=== PATIENT | male | born 1975 | race Caucasian/White ===

== ENCOUNTER 2020-12-31 13:23 | Inpatient (IN) | payer BC, SELFPAY ==
[2020-12-31] VITALS (7 sets, daily range): BP systolic 149–154; BP diastolic 92–94; PULSE 67–94; RESP 17–20; TEMP 36.3–37; O2SAT 93–99; BMI 34.9
[2020-12-31] MEDS: nicotine 21 mg Patch 1 PATCH TRANSDERMA (14:29)
[2020-12-31] MEDS: albuterol 8 gm MDI 2 PUFF INHALATION ×3 (17:03→23:15)
[2020-12-31] MEDS: acetaminophen 325 mg Tablet 650 MG PO (20:15)
[2020-12-31] MEDS: hyDROXYzine 25 mg Capsule 50 MG PO (20:26)
--- NOTE | 2020-12-31 20:30 | PC.NURSE ---
pt given vistaril for signs of increased anxiety.
--- NOTE | 2020-12-31 21:08 | PC.NURSE ---
pt putting together jigsaw puzzle of the floor of his room calmly.
[2021-01-01] VITALS (12 sets, daily range): BP systolic 112–137; BP diastolic 60–83; PULSE 73–92; RESP 16–20; TEMP 36.5–37.2; O2SAT 94–98
--- NOTE | 2021-01-01 05:45 | PC.NURSE ---
Patient at nurses station, States I smell coffee . Let patient know it was brewing and would be ready in 10-15 minutes. Patient had no S/S of any respiratory distress, no S/S of shortness of breath with ambulation or speech.
--- NOTE | 2021-01-01 05:58 | PC.NURSE ---
Aid requested assistance in patient's room, secondary to patient stating that he about, passed out went down and hurt my knee . Because I need my inhaler '.
--- NOTE | 2021-01-01 05:59 | PC.NURSE ---
Arrived at patient's room. Assessed patient. Patient was on his knees. Patient was leaning over bed coughing into his pillow. Patient's cough appeared to be productive, as he was spitting into tissue. Patient was offered an emesis basin, Patient refused. Patients respiratory rate was 32 with expiratory wheezing. I encouraged patient to slow down his breathing. Communicated to aid to have L.P.N. call Respiratory therapy STAT.
--- NOTE | 2021-01-01 06:02 | PC.NURSE ---
Confirmed with L.P.N that Respiratory Therapy was called. Continued to encourage patient to slow down his breathing. Continued to monitor patient.
--- NOTE | 2021-01-01 06:05 | PC.NURSE ---
Patients respiratory rate slowed to 24 B.P.M.. Patient was angry and commented This is cruel and unusual punishment, not being to have my inhaler with me at bedside to use when I want . I reinforced to the patient that Respiratory Therapy was on their way. Continued to encourage patient to slow breathing. Patient took pillow from bed and laid on floor. Patients acute respiratory distress appeared to be subsiding as his breathing slowed. Continued to monitor. Requested Aid to obtain V/S.
[2021-01-01] MEDS: albuterol 8 gm MDI 2 PUFF INHALATION ×6 (06:06→23:05)
--- NOTE | 2021-01-01 06:08 | PC.NURSE ---
V/S obtained: P.-92, RESP.-20, O2 sat 97% R.A.. Continued to monitor.
--- NOTE | 2021-01-01 06:25 | PC.NURSE ---
Respiratory Therapy arrived. ( R.Isabel. came via courtyard entrance because the last time she was here the floors were being waxed and that entrance was blocked. She didn't have her computer with her because of this. )
[2021-01-01] MEDS: acetaminophen 325 mg Tablet 650 MG PO ×3 (06:26→17:32)
--- NOTE | 2021-01-01 06:30 | PC.NURSE ---
OskarT reported that patient had some expiratory wheezing but they were resolved with inhaler treatment. Aure. said she would chart everything when she got back to her computer.
--- NOTE | 2021-01-01 06:40 | PC.NURSE ---
Patient came up to nurses station. I asked him about his right knee and if he was in pain. Patient responded it's a little sore . I requested that he pull up his pant leg so I could assess it. Patient's right knee did not appear red, swollen, no S/S of contusion or abrasion. I asked him to rate the soreness on a scale of 1-10 he rated it 2/10. I asked him if he would like any medication for knee pain. Patient declined medication at this time.
[2021-01-01] MEDS: pantoprazole DR 40 mg Tablet PO (08:31)
[2021-01-01] MEDS: meloxicam 7.5 mg tablet 15 MG PO (08:31)
[2021-01-01] MEDS: buPROPion SR (12 HR) 150 mg Tablet PO (08:31)
[2021-01-01] MEDS: cetirizine 10 mg Tablet PO (08:31)
[2021-01-01] MEDS: lisinopril 10 mg Tablet PO (08:31)
--- NOTE | 2021-01-01 08:37 | PC.NURSE ---
REFUSED SCHEDULED MULTIVITAMIN, THIAMINE, FOLIC ACID. PT MOOD IRRITABLE, STATED HE MUST OF BEEN DRINKING AT [facility] ALL WEEKEND WHEN STAFF ATTEMPTED TO EDUCATE PT ABOUT CIWA PROTOCOL.
--- NOTE | 2021-01-01 12:23 | P.HP_ITS ---
Providers/Chief Complaint Admitting Physician: Grover Smith MD HPI NPU History of Present Illness Maximino Oreilly is a 45 year old male who presented to the emergency department in [facility] with the report that he was on medical secondary to suicidal ideation, a recent dispute and intoxication. He was transferred to [facility] and ultimately admitted to the neuropsychiatric unit for definitive treatment of those issues. He presents today reporting that he was hospitalized when he was a teenager for depression and behavioral problems may be a couple of times. He was just the first time he has been hospitalized as an adult. He denies significant outpatient services in his life. He does report having psychiatric services when he was locked up. He reports he took [facility] in [facility] and is currently taking Wellbutrin mostly to assist him in discontinuing smoking. He reports he currently smokes a quarter to half a pack a day, reports he drinks alcohol most days endorsing it has been a problem more lately. He denies marijuana use though has a history of marijuana use and denies any illicit drug use. He reports he never been to rehab or had a DUI. He reports he had some success with smoking cessation in the past with challenges have led to him picking up again. He reports that his is here as he had too much alcohol obviously. He reports that the typical Thursday was playing out in the 1 other goats had a kid. His normally handles that and afterwards she went off the store and a another kid was born and it ended up dying and he felt very guilty that maybe he did not do what was necessary to help and he drank more than he should have after that happened. He denies any history of suicide attempts. He reports that he and his got in a argument and she was seemingly pushing his buttons and he guesses the police were called and ended up at the hospital and then after coming to transfer he. He denies current suicidal thinking and says he would never do that. He is not allowed to have a gun and reportedly he was going after his weapons but those have been confiscated by the activity aide. We discussed the risk-benefit and alternative starting medication or increasing current medication and he understood and agreed to proceed as documented in this note. Specifically he feels that this is a product of 15 to much and does not necessarily feel initiating or increasing anything right now is necessary but we reviewed the evaluate in the morning. Psychiatric history: As above. Substance abuse history: As above. Family history: He endorses mental issues on both sides of the family, addiction issues on his father side of family, and reports that his mother committed suicide in 1991. Developmental history: There were no problems with the , or delivery, learned to walk and talk and met developmental milestones on time, and denies need for speech therapy, learning support, emotional support or special education classes. Psychosocial history: He reports his mother and father were together he was born and that they had a girl older than him and a boy younger than him the other. Neither of his parents had any kids with other partners. He reports his childhood was all right and denies any emotional, physical or sexual abuse. He reports that he did not graduate from high school making into the ninth grade. He did get his GED. 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 He endorses being a heterosexual with a long relationship being 1314 years. Is been 1 time and is currently . He has 3 children a 13-year-old and 18-year-old that are boys and a 10-year-old his girl, he is never been in the and denies any pentecostalism belief system. He reports he has been in the [employer] for 21 years and currently lives in a trailer with his 3 children and his [id number] lives in his camper on the property. Legal history: He reports he been in [employer] starting when he was a teenager and the longest time he spent behind bars was 5 years which ended when he was about 22. Medical history: He endorses degenerative disc disease, COPD, chronic pain, resting tremor, possible cardiomyopathy and osteoarthritis. Meds NPU Home Medications Medication Instructions Recorded Confirmed Last Taken Type albuterol sulfate 2 puff INHALATION QID PRN 12/31/20 12/31/20 Unknown History budesonide-formoterol [Symbicort] 2 puff INHALATION BID 12/31/20 12/31/20 12/31/20 History bupropion HCl [Wellbutrin SR] 150 mg PO BID 12/31/20 12/31/20 Unknown History cetirizine [Zyrtec] 10 mg PO DAILY 12/31/20 12/31/20 Unknown History fluticasone propionate [Flonase 2 spray INTRANASAL BID PRN 12/31/20 12/31/20 Unknown History Allergy Relief] ibuprofen [Motrin] 800 mg PO Q8H PRN 12/31/20 12/31/20 Unknown History lisinopril 10 mg PO DAILY 12/31/20 12/31/20 Unknown History meloxicam 15 mg PO DAILY 12/31/20 12/31/20 Unknown History omeprazole [Prilosec] 20 mg PO DAILY 12/31/20 12/31/20 Unknown History sildenafil [Viagra] 100 mg PO DAILY PRN 12/31/20 12/31/20 Unknown History Allergies Allergy/AdvReac Type Severity Reaction Status Date / Time No Known Allergies Allergy Verified 12/31/20 14:08 PFSH NPU PFSH: Medical History (Updated 01/02/21 @ 07:36 by Grover Smith MD) COPD (chronic obstructive pulmonary disease) Mental Status Exam MSE Comments: This is an obese white male in hospital scrubs with adequate grooming and eye contact. Vital movements except for psychomotor retardation a nd a resting tremor most notably in his head. Cooperative with exam in mild distress. Speech was decreased rate and volume. Mood described as all right, affect subdued. Thought process organized. Thought content: Patient denied current suicidal or homicidal ideation, there were no delusions reported no, he denied any auditory visual hallucinations. Attention and concentration were intact and memory appeared mostly reliable but none were formally tested. He is alert and oriented x3. Insight and judgment appear fair impulse control appears improving. Vitals/I&O/Wt Last Vital Signs Temp 99.0 F 01/01/21 06:00 Pulse 84 01/01/21 06:00 Resp 18 01/01/21 06:00 BP 137/81 01/01/21 06:00 Pulse Ox 96 01/01/21 06:00 Weight last 48 hrs Weight 120.202 kg A&P Assessment and plan (1) Anxiety: Status: Acute (2) Alcohol abuse: Status: Acute (3) Nicotine dependence: Status: Acute (4) Suicidal ideation: Status: Acute (5) COPD (chronic obstructive pulmonary disease): Status: Acute Additional A&P Information This is a 45-year-old white male with a long history of mental health and addiction issues and likely cluster B pathology who presents after getting intoxicated and getting a conflict with his that led to him being on a 96- hour hold. 1. Continue current medication. 2. Continue every 15 minute checks for safety. 3. Encourage individual, group and milieu therapies. 4. Encourage sober living treatment after discharge at the highest level of care to which he is willing to commit. Involuntary Hold Information 96 Hour Hold: 96 Hour Involuntary Admission: Yes 96 Hour Hold Ending Date: 01/04/21 96 Hour Hold Ending Time: 13:10 Attestations NPU Medical Necessity Statement*: Inpatient hospitalization is medically necessary and the clinically appropriate intervention at this time. We will monitor medications and make changes as indicated. Patient will be in the hospital for over two midnights. Likely length of stay 2-4 days. Coding Level of Care Code Acute Cardiovascular Lab Director for Mart[facility]iad Diagnoses Anxiety F41.9 Alcohol abuse F10.10 Nicotine dependence F17.200 Suicidal ideation R45.851 COPD (chronic obstructive pulmonary disease) J44.9
[2021-01-01] MEDS: nicotine 21 mg Patch 1 PATCH TRANSDERMA (14:38)
--- NOTE | 2021-01-01 23:31 | PC.NURSE ---
About 2100 the patient came to the nurse's station to request another Albuterol inhaler treatment. I called RT with the patient's request. Informed the treatment could only be administered every 4 hours. The patient was talking on the phone discussing the treatment schedule with his . When he ended the call the patient's called the nurse's station. Tatum Oreilly, , said she had conversation with the director community health nursing earlier today. Tatum said she had been told a rescue inhaler was in the unit med room and could be administered whenever the patient requested. I told Tatum I would call Dr. Smith and communicate with the director community health nursing. Called Dr. Smith. He suggested RT evaluate the patient and make suggestions if a different form of respiratory treatment might be helpful. Also informed the director community health nursing of the above. At 2224 called Tatum with an update. Tatum said the patient is unhappy that he is hospitalized. She said the heat exacerbates the patient's symptoms. Tatum seemed satisfied with the actions taken. Tatum said she would stop by the unit sometime tomorrow. RT did come to evaluate the patient. No changes were recommended.
[2021-01-02] VITALS (9 sets, daily range): BP systolic 104–147; BP diastolic 61–87; PULSE 73–88; RESP 16–18; TEMP 36.2–37.3; O2SAT 95–96
[2021-01-02] MEDS: acetaminophen 325 mg Tablet 650 MG PO ×2 (06:28→10:32)
[2021-01-02] MEDS: albuterol 8 gm MDI 2 PUFF INHALATION ×3 (06:35→15:31)
[2021-01-02] MEDS: buPROPion SR (12 HR) 150 mg Tablet PO (08:57)
[2021-01-02] MEDS: lisinopril 10 mg Tablet PO (08:57)
[2021-01-02] MEDS: meloxicam 7.5 mg tablet 15 MG PO (08:57)
[2021-01-02] MEDS: cetirizine 10 mg Tablet PO (08:57)
[2021-01-02] MEDS: pantoprazole DR 40 mg Tablet PO (08:58)
--- NOTE | 2021-01-02 08:59 | PC.NURSE ---
refused scheduled Multivitamin, thiamine, folic acid
--- NOTE | 2021-01-02 15:54 | PM.NDC ---
Diagnoses at Discharge Discharge Diagnosis (1) Anxiety: Status: Acute (2) Alcohol abuse: Status: Acute (3) Nicotine dependence: Status: Acute (4) Suicidal ideation: Status: Resolved (5) COPD (chronic obstructive pulmonary disease): Status: Acute Reason for Visit Reason for Visit: Brief History: History of Present Illness Maximino Oreilly is a 45 year old male who presented to the emergency department in [facility] with the report that he was on medical secondary to suicidal ideation, a recent dispute and intoxication. He was transferred to [facility] and ultimately admitted to the neuropsychiatric unit for definitive treatment of those issues. He presents today reporting that he was hospitalized when he was a teenager for depression and behavioral problems may be a couple of times. He was just the first time he has been hospitalized as an adult. He denies significant outpatient services in his life. He does report having psychiatric services when he was locked up. He reports he took [facility] in [facility] and is currently taking Wellbutrin mostly to assist him in discontinuing smoking. He reports he currently smokes a quarter to half a pack a day, reports he drinks alcohol most days endorsing it has been a problem more lately. He denies marijuana use though has a history of marijuana use and denies any illicit drug use. He reports he never been to rehab or had a DUI. He reports he had some success with smoking cessation in the past with challenges have led to him picking up again. He reports that his is here as he had too much alcohol obviously. He reports that the typical Thursday was playing out in the 1 other goats had a kid. His normally handles that and afterwards she went off the store and a another kid was born and it ended up dying and he felt very guilty that maybe he did not do what was necessary to help and he drank more than he should have after that happened. He denies any history of suicide attempts. He reports that he and his got in a argument and she was seemingly pushing his buttons and he guesses the police were called and ended up at the hospital and then after coming to transfer he. He denies current suicidal thinking and says he would never do that. He is not allowed to have a gun and reportedly he was going after his weapons but those have been confiscated by the it desktop support technician. We discussed the risk-benefit and alternative starting medication or increasing current medication and he understood and agreed to proceed as documented in this note. Specifically he feels that this is a product of 15 to much and does not necessarily feel initiating or increasing anything right now is necessary but we reviewed the evaluate in the morning. Psychiatric history: As above. Substance abuse history: As above. Family history: He endorses mental issues on both sides of the family, addiction issues on his father side of family, and reports that his mother committed suicide in 1991. Developmental history: There were no problems with the , or delivery, learned to walk and talk and met developmental milestones on time, and denies need for speech therapy, learning support, emotional support or special education classes. Psychosocial history: He reports his mother and father were together he was born and that they had a girl older than him and a boy younger than him the other. Neither of his parents had any kids with other partners. He reports his childhood was all right and denies any emotional, physical or sexual abuse. He reports that he did not graduate from high school making into the ninth grade. He did get his GED. 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 He endorses being a heterosexual with a long relationship being 1314 years. Is been 1 time and is currently . He has 3 children a 13-year-old and 18-year-old that are boys and a 10-year-old his girl, he is never been in the and denies any jehovah's witness belief system. He reports he has been in the [employer] for 21 years and currently lives in a trailer with his 3 children and his [id number] lives in his camper on the property. Legal history: He reports he been in [employer] starting when he was a teenager and the longest time he spent behind bars was 5 years which ended when he was about 22. Medical history: He endorses degenerative disc disease, COPD, chronic pain, resting tremor, possible cardiomyopathy and osteoarthritis. Hospital Course Hospital Course Maximino presented to the emergency department at an outside hospital and was noted to have active addiction, depression and reported suicidality. He was transferred to [facility] and ultimately the neuropsychiatric unit for definitive treatment of those issues. He indicated that his behaviors were in part secondary to recent use and he was on a 96-hour hold which we observe him to identify whether ongoing treatment against his will with necessary. We increased his Wellbutrin and started him on BuSpar and he showed improvement. He was able to contract for safety prior to discharge. During the hospitalization, patient had routine laboratory studies which were within normal limits except for few outliers. Additionally there was a general medical evaluation which was also within normal limits and revealed no new acute processes. Discharge Summary: At the time of discharge, psychosis and lethality were denied. Mood and anxiety were well managed. Patient endorsed a plan to avoid all drugs of abuse and follow-up with the aftercare recommendations of the treatment team. Patient was evaluated and deemed to be absent credible lethality, and had achieved the maximum benefit from an inpatient hospitalization, so was discharged. Involuntary Hold Information 96 Hour Hold: 96 Hour Involuntary Admission: Yes 96 Hour Hold Ending Date: 01/04/21 96 Hour Hold Ending Time: 13:10 Mental Status Exam MSE Comments: This is an obese white male in hospital scrubs with adequate grooming and eye contact. No abnormal movements except for improving psychomotor retardation and a resting tremor most notably in his head. Cooperative with exam in no acute distress. Speech was more normal rate and volume. Mood described as better, affect less subdued. Thought process organized. Thought content: Patient denied current suicidal or homicidal ideation, there were no delusions reported or noted, he denied any auditory or visual hallucinations. Attention and concentration were intact and memory appeared mostly reliable but none were formally tested. He is alert and oriented x3. Insight and judgment appear fair, impulse control appears improving. Discharge Data Vitals: Last Vital Signs Temp 97.2 F L 01/02/21 14:00 Pulse 77 01/02/21 15:34 Resp 18 01/02/21 15:32 BP 147/87 01/02/21 14:00 Pulse Ox 96 01/02/21 15:32 Discharge Plan Discharge Patient Disposition: Home Condition: Stable Prescriptions: New bupropion HCl 150 mg Tablet Sustained-Release 12 Hr 150 mg PO DAILY 30 Days Qty: 30 RF: 1 Vitamin B-1 (mononitrate) 100 mg Tablet 100 mg PO DAILY 30 Days Qty: 30 RF: 1 buspirone 15 mg tablet 15 mg PO BID 30 Days Qty: 60 RF: 1 Continued Symbicort 80-4.5 mcg/actuation Hfa Aerosol Inhaler 2 puff INHALATION BID RF: 0 albuterol sulfate 90 mcg/actuation Hfa Aerosol Inhaler 2 puff INHALATION QID PRN (Reason: Shortness Of Breath Or Wheezing) RF: 0 fluticasone propionate [Flonase Allergy Relief] 50 mcg/actuation [place],Suspension 2 spray INTRANASAL BID PRN (Reason: Nasal Congestion) RF: 0 lisinopril 10 mg Tablet 10 mg PO DAILY RF: 0 meloxicam 15 mg Tablet 15 mg PO DAILY RF: 0 omeprazole 20 mg Capsule,Delayed Release(Dr/Ec) 20 mg PO DAILY RF: 0 Zyrtec 10 mg Tablet 10 mg PO DAILY RF: 0 sildenafil [Viagra] 100 mg Tablet 100 mg PO DAILY PRN (Reason: Sexual Activity) RF: 0 ibuprofen 800 mg Tablet 800 mg PO Q8H PRN (Reason: Moderate Pain (Scale Score 5-6)) RF: 0 Wellbutrin SR 150 mg Tablet Sustained-Release 12 Hr 150 mg PO BID 30 Days Qty: 60 RF: 1 Discharge Orders: Discharge Order (Routine); Ordered 01/02/21 Ordered By: Grover Smith Referrals: [facility] [place] [Other] (M-F 8AM-5PM Walk In [facility] completed the intake paperwork with you while you were at the hosptial.) Discharge Diet: Regular Discharge Activity: Resume usual activity Patient Instructions: Generalized Anxiety Disorder (DC) Discharge Attestations NPU Time Spent in Discharge Care*: less than 30 min Specific Discharge Activities: Specific discharge activities: educating patient, discussing with case monitor/social workers/dc planners, documenting/other paperwork and evaluating patient/reviewing data Coding Level of Care Code Acute Casino Change Attendant for Akshatg Fwd Diagnoses Anxiety F41.9 Alcohol abuse F10.10 Nicotine dependence F17.200 Suicidal ideation R45.851 COPD (chronic obstructive pulmonary disease) J44.9
== END 2021-01-02 16:17 | disposition home or self-care (01) | DRG 880 ==
PROVIDERS: Admitting Provider Psychiatry & Neurology Psychiatry; Visit Provider Psychiatry & Neurology Psychiatry
DX: F41.9 Anxiety disorder, unspecified (principal); R45.851 Suicidal ideations; I42.9 Cardiomyopathy, unspecified; F10.10 Alcohol abuse, uncomplicated; F17.210 Nicotine dependence, cigarettes, uncomplicated; J44.9 Chronic obstructive pulmonary disease, unspecified; Z79.51 Long term (current) use of inhaled steroids; Z63.0 Problems in relationship with spouse or partner; G89.29 Other chronic pain; R25.1 Tremor, unspecified; M19.90 Unspecified osteoarthritis, unspecified site; E66.9 Obesity, unspecified; Z68.35 Body mass index [BMI] 35.0-35.9, adult; F60.89 Other specific personality disorders
CPT/HCPCS: 94640; 94664; J3535

== ENCOUNTER → 2021-04-04 13:21 | Outpatient (BNVA) | payer BC, SELFPAY | PROVIDERS: PCP Family Medicine; Referring Provider Family Medicine; Visit Provider Anesthesiology Pain Medicine | DX: G89.29 Other chronic pain (principal); M51.16 Intervertebral disc disorders with radiculopathy, lumbar region; M54.9 Dorsalgia, unspecified; M54.2 Cervicalgia; M25.511 Pain in right shoulder; M79.604 Pain in right leg; M25.551 Pain in right hip; G62.9 Polyneuropathy, unspecified; F17.210 Nicotine dependence, cigarettes, uncomplicated | CPT/HCPCS: 99205 ==

== ENCOUNTER 2021-04-26 03:59 | Observation (INO) | payer BC, SELFPAY ==
[2021-04-26] VITALS (7 sets, daily range): BP systolic 102–137; BP diastolic 62–87; PULSE 66–87; RESP 18–20; TEMP 36.5–36.8; O2SAT 94–99; BMI 31.6
--- NOTE | 2021-04-26 04:27 | ED_ITS ---
HPI - Psych General: Chief Complaint: Psychiatric Symptoms Stated Complaint: SI Time Seen by Provider: 04/26/21 04:04 Source: patient Mode of arrival: ambulatory Limitations: no limitations History of Present Illness: HPI Narrative: 45-year-old male states he had on-the-job incident roughly 5 years ago where he was electrocuted. He states that since then he has had extreme anger to his former coworkers. He states is gotten much worse this week he has now been having thoughts of suicide and homicide. Denies any worsening improving factors. Associated symptoms: Reports depression, homicidal ideation and suicidal ideation Review of Systems Const: Denies: fever(s), chills, body aches or change in appetite Eyes: Denies: blurry vision or eye discomfort ENMT: Denies: throat pain or dental pain Card: Denies: chest pain Resp: Denies: dyspnea GI: Denies: abdominal pain, nausea, vomiting or diarrhea : Denies: dysuria Musc: Denies: neck pain or back pain Skin/Breast: Denies: rash Neuro: Denies: headache(s) Psych: Reports: depression, mood swings, suicidal ideation and homicidal ideation Jake/Lymph: Denies: easy bruising All/Imm: Denies: urticaria PFSH ED PFSH: Medical History (Updated 04/26/21 @ 05:30 by Rusty Unger MD) COPD (chronic obstructive pulmonary disease) Family History (Updated 04/04/21 @ 13:54 by Alvina Collazo LPN) Sister Diabetes Grandmother Diabetes Hypertension Stroke Father Hypertension Stroke Social History Smoking and tobacco status: current every day smoker cigarettes Packs smoked per day: 0.5 Years cigarettes smoked: 30 Quit status (tobacco): has tried quititng Number of times tried to quit tobacco: 7 Second hand smoke exposure: Yes Physical Exam Const: COMMON NORMALS: no acute distress, patient oriented x3 and healthy a ppearing HENMT: COMMON NORMALS: normocephalic and atraumatic HEAD & SCALP: normocephalic and atraumatic Eye: COMMON NORMALS: Equal, round and reactive pupils present and EOMs intact bilaterally PUPIL: Yes Equal, round and reactive pupils present Neck/C-Spine: COMMON NORMALS: full ROM and supple Chest: COMMONS NORMALS: normal inspection of the chest and normal palpation of entire chest wall Resp: COMMON NORMALS: normal respiratory effort, No retractions, No use of accessory muscles and clear to auscultation bilaterally AUSCULTATION: clear to auscultation bilaterally Cardio: COMMON NORMALS: regular rate, regular rhythm and No murmurs present (Cardio) RATE: regular rate RHYTHM: regular rhythm GI: COMMON NORMALS: Normal to inspection, nondistended, normoactive bowel sounds present, Soft to palpation, non-tender and no masses PALPATION: Yes Soft to palpation Extremity: COMMON NORMALS: normal to inspection and full ROM Neuro: COMMON NORMALS: patient oriented x3, moves all extremities and no focal motor deficits Psych: COMMON NORMALS: mental status grossly normal, Normal thought process present and cooperative THOUGHT PROCESS: Normal thought process present THOUGHT CONTENT: Yes Suicidality present and Yes Homicidality present Skin: COMMON NORMALS: no rashes or lesions noted and no wounds GENERAL SKIN EXAM: no rashes or lesions noted Course Vital Signs: Vital signs: Vital Signs Temperature 98.2 F 04/26/21 04:11 Pulse Rate 83 04/26/21 04:11 Respiratory Rate 18 04/26/21 04:11 Blood Pressure 137/81 04/26/21 04:11 Pulse Oximetry 97 04/26/21 04:11 MDM - Psych MDM Narrative: Medical decision making narrative: Patient presents for suicidal ideations along with homicidal ideations. Patient is medically cleared I spoke to psychiatrist and will admit to the psychiatric unit. Patient's v oluntary. Lab Data: Labs: Lab Results 04/26/21 04/26/21 04/26/21 Range/Units 04:44 04:44 04:50 WBC 9.6 (4.0-10.0) 10^3/ uL RBC 4.58 (4.1-5.3) 10^6/u L Hgb 13.7 (11.7-16.6) g/dL Hct 41.5 L (42.0-52.0) % MCV 90.6 (80-94) fL MCH 29.9 (28.0-34.0) pg MCHC 33.0 (30.0-36.0) g/dL RDW 12.6 (12.1-15.1) % Plt Count 280 (130-400) 10^3/c mm MPV 9.4 (7.4-10.4) fL Neut % (Auto) 61.9 % Lymph % (Auto) 30.1 % Mckenzie % (Auto) 5.2 % Eos % (Auto) 2.0 % Baso % (Auto) 0.6 % Neut # (Auto) 5.93 (1.8-7.7) 10^3/u L Lymph # (Auto) 2.9 (0.8-4.8) 10^3/u L Mckenzie # (Auto) 0.5 (0.2-0.9) 10^3/u L Eos # (Auto) 0.2 (0.0-0.8) 10^3/u L Baso # (Auto) 0.1 (0.0-0.1) 10^3/u L Nucleated RBC % (a uto) 0 % Nucleated RBCs # 0.0 /100WBC Sodium 137 (136-145) mmol/L Potassium 3.8 (3.5-5.1) mmol/L Chloride 103 (98-107) mmol/L Carbon Dioxide 24 (22-29) mmol/L Anion Gap 13.8 (5-19) BUN 15 (6-20) mg/dL Creatinine 1.2 (0.7-1.2) mg/dL GFR Calculation 65.5 L (90-130) mL/min Glucose 93 (65-115) mg/dL Calculated Osmolal ity 285 (285-295) mOsm/k g Calcium 8.5 (8.5-10.5) mg/dL Total Bilirubin 0.2 (0.15-1.2) mg/dL AST 12 (0-40) U/L ALT 8 (0-41) U/L Alkaline Phosphata se 81 (40-130) IU/L Total Protein 6.2 L (6.6-8.7) g/dL Albumin 4.1 (3.5-5.2) g/dL Globulin 2.1 (1.3-4.6) g/dL Salicylates 0.4 L (3-10) mg/dL Urine Opiates Scre en Negative (Negative) ng/mL Acetaminophen < 5.0 L (10-30) ug/mL Ur Barbiturates Sc reen Negative (Negative) ng/mL Ur Phencyclidine S crn Negative (Negative) ng/mL Ur Amphetamines Sc reen Negative (Negative) ng/mL U Benzodiazepines Scrn Negative (Negative) ng/mL Urine Cocaine Scre en Negative (Negative) ng/mL U Marijuana (THC) Screen Positive H (Negative) ng/mL Ethyl Alcohol < 10 (0-10) mg/dL Discharge Plan Discharge Patient Disposition: Admitted As Inpatient Clinical Impression: Suicidal ideation Condition: Stable Coding Level of Care Code ED Energy Audit Advisor for Martínez Ivy Exam Comprehensive
[2021-04-26 04:48] LABS: Basophils # 0.1 10^3/uL (0.0-0.1); Basophils % 0.6 %; Eosinophils # 0.2 10^3/uL (0.0-0.8); Hematocrit 41.5 % (42.0-52.0); Hemoglobin 13.7 g/dL (11.7-16.6); Lymphocytes # 2.9 10^3/uL (0.8-4.8); Lymphocytes % 30.1 %; Mean Corpuscular Hemoglobin 29.9 pg (28.0-34.0); Mean Corpuscular Volume 90.6 fL (80-94); Mean Platelet Volume 9.4 fL (7.4-10.4); Monocytes # 0.5 10^3/uL (0.2-0.9); Monocytes % 5.2 %; Neutrophils # 5.93 10^3/uL (1.8-7.7); Neutrophils % 61.9 %; Nucleated Red Blood Cells % 0 %; Platelet Count 280 10^3/cmm (130-400); Red Blood Count 4.58 10^6/uL (4.1-5.3); Red Cell Distribution Width 12.6 % (12.1-15.1); White Blood Count 9.6 10^3/uL (4.0-10.0)
[2021-04-26] MEDS: LORazepam 2 mg Tablet PO (04:58)
[2021-04-26 05:10] LABS: Amphetamines Screen Urine Negative (Negative); Barbiturates Screen Urine Negative (Negative); Benzodiazepines Screen Urine Negative (Negative); Cocaine Screen Urine Negative (Negative); Opiate Screen Urine Negative (Negative); PCP Screen Urine Negative (Negative); THC Screen Urine Positive (Negative)
[2021-04-26 05:14] LABS: Alanine Aminotransferase 8 U/L (0-41); Albumin Level 4.1 g/dL (3.5-5.2); Alkaline Phosphatase 81 IU/L (40-130); Anion Gap 13.8 (5-19); Aspartate Amino Transferase 12 U/L (0-40); Blood Urea Nitrogen 15 mg/dL (6-20); Calcium 8.5 mg/dL (8.5-10.5); Carbon Dioxide 24 mmol/L (22-29); Chloride 103 mmol/L (98-107); Globulin 2.1 g/dL (1.3-4.6); Glomerular Filtration Rate 65.5 mL/min (90-130); Glucose 93 mg/dL (65-115); Osmolality Calculated 285 mOsm/kg (285-295); Potassium 3.8 mmol/L (3.5-5.1); Salicylate 0.4 mg/dL (3-10); Sodium 137 mmol/L (136-145); Total Bilirubin 0.2 mg/dL (0.15-1.2); Total Protein 6.2 g/dL (6.6-8.7)
[2021-04-26 05:17] LABS: Acetaminophen < 5.0 ug/mL (10-30); Alcohol Level < 10 mg/dL (0-10)
--- NOTE | 2021-04-26 06:17 | PC.NURSE ---
Pt states he has a medical marijuana card, which he provided as proof. He asked that this information be noted in his chart. Pt calm and cooperative, resting with eyes closed at this time, easily awakened. Sitter outside room.
[2021-04-26] MEDS: nicotine 21 mg Patch 1 PATCH TRANSDERMA (12:08)
[2021-04-26] MEDS: acetaminophen 325 mg Tablet 650 MG PO (13:12)
[2021-04-26] MEDS: lisinopril 10 mg Tablet PO (13:25)
--- NOTE | 2021-04-26 14:57 | PC.NURSE ---
prn 1208 administered nicotine patch 21 mg at pts request. will need to remove before HS. will continue to monitor pt.
--- NOTE | 2021-04-26 16:26 | P.HP_ITS ---
Providers/Chief Complaint Admitting Physician: Bulmaro Jones MD Primary Care Provider: Isai Carrington Chief Complaint: SI HPI NPU History of Present Illness Maximino Oreilly is a 45 year old male admitted for suicidal ideation. The ED note states: 45-year-old male states he had on-the-job incident roughly 5 years ago where he was electrocuted. He states that since then he has had extreme anger to his former coworkers. He states is gotten much worse this week he has now been having thoughts of suicide and homicide. Denies any worsening improving factors.: The patient tells me the story of having been electrocuted 5 years ago and numerous medical complaints that have arisen from this accident. He has pain in his back and leg, feels that his feet are on fire, and is often awakened by myoclonic jerks. He has had several episodes of pneumonia. Other somatic complaints include heart palpitations, chest pain, stomach pains. The patient said he has had depression all of his life, but it has been worse recently, as the myoclonic jerks and shaking in his extremities have increased in the last week. He says his mind gets stuck in a loop, thinking about the accident, people who are negligent, and other things that have happened. He has been thinking about suicide. He denies auditory visual hallucinations. The patient also describes social anxiety. He is unable to go to [facility] and lives there only 1 or 2 people there. He says he has difficulty going out into public and has to avoid large crowds. The patient says he stopped drinking after he was admitted for suicidal behavior back in December. He uses medical marijuana to relax. He smokes 1/2 pack of cigarettes per day. The patient was admitted back in December 2020 after he had taken out again with the intention of shooting himself. He sees Dr. Aragon for counseling. And Dr. Massey is his psychiatrist. Psychiatric history: As above. Substance use history: As above. Family history: The patient says that his father attempted suicide by shooting himself in the s tom[place] while at [employer] when the patient was young. His mother completed suicide when he was 16 years old. His sister has attempted suicide. His father of a brain aneurysm. Psychosocial history: The patient says he experienced numerous behavioral disorders when he was young. At age 16 he dropped out of school. He was imprisoned for 5 years and got his GED when he was in [employer]. 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 They in 2017. They have 3 children ages 8, 11, and 13. Legal history: Detention for 5 years. No legal difficulties now. Medical history: As above. Review of Systems General: Reports: 10 or more systems reviewed and unremarkable except in HPI and below Meds NPU Home Medications Medication Instructions Recorded Confirmed Last Taken Type albuterol sulfate [ProAir HFA] 2 puff INHALATION QID PRN 12/31/20 04/26/21 04/25/21 History budesonide-formoterol [Symbicort] 2 puff INHALATION BID 12/31/20 04/26/21 04/25/21 History cetirizine [Zyrtec] 10 mg PO DAILY 12/31/20 04/26/21 04/25/21 History fluticasone propionate [Flonase 2 spray INTRANASAL BID PRN 12/31/20 04/04/21 Unknown History Allergy Relief] ibuprofen 800 mg PO Q8H PRN 12/31/20 04/04/21 Unknown History lisinopril 10 mg PO DAILY 12/31/20 04/26/21 04/25/21 History meloxicam 15 mg PO DAILY 12/31/20 04/26/21 04/25/21 History omeprazole 20 mg PO DAILY 12/31/20 04/26/21 04/25/21 History thiamine mononitrate (vit B1) 100 mg PO DAILY 30 Days #30 tab 01/02/21 04/04/21 Unknown Rx [Vitamin B-1 (mononitrate)] bupropion HCl 150 mg tablet,12 hr 150 mg PO BID 30 Days #60 tab 03/27/21 04/26/21 04/25/21 Rx sustained-release buspirone 15 mg tablet 15 mg PO TID 30 Days #90 tab 03/27/21 04/26/21 04/25/21 Rx fluoxetine 40 mg capsule 40 mg PO DAILY #30 cap 03/27/21 04/26/21 04/25/21 Rx varenicline 0.5 mg (11)-1 mg (42) See Rx Instructions PO PER PKG DIR 03/27/21 04/04/21 Unknown Rx tablets in a dose pack #53 ea cane #1 ea 04/04/21 04/04/21 Unknown Rx gabapentin 300 mg capsule 300 mg PO TID #90 cap 04/04/21 04/26/21 04/25/21 Rx Allergies Allergy/AdvReac Type Severity Reaction Status Date / Time No Known Allergies Allergy Verified 04/04/21 13:46 PFSH NPU PFSH: Medical History (Updated 04/26/21 @ 05:30 by Rusty Unger MD) COPD (chronic obstructive pulmonary disease) Family History (Updated 04/04/21 @ 13:54 by Alvina Collazo LPN) Sister Diabetes Grandmother Diabetes Hypertension Stroke Father Hypertension Stroke Social History Smoking and tobacco status: current every day smoker cigarettes Packs smoked per day: 0.5 Years cigarettes smoked: 30 Quit status (tobacco): has tried quititng Number of times tried to quit tobacco: 7 Second hand smoke exposure: Yes Mental Status Exam MSE Comments: The patient is a large, bearded man who was cooperative and made good eye contact. His ability to articulate experiences and draw conclusions shows a good degree of intelligence. Mild psychomotor agitation. Speech was at a regular rate and rhythm, mildly pressured but interruptible. He was alert and oriented to person, place, day and date. Attention and concentration were intact. He was able to follow the conversation. He was able to spell the word WORLD correctly forwards and backwards. Memory showed some short-term problems. He remembers 3/3 words immediately and 1/3 at 3 minutes. He knows the names of the past 5 presidents. Mood is depressed and anxious. Affect is mood congruent. Thought process: Some perseveration about past traumas. Otherwise logical and goal-directed. Thought content: He denies current suicidal ideation. He says he came to the hospital because I was afraid I was going to get to the point where I wanted to kill myself again. No auditory or visual hallucinations. No delusions noted. Insight and judgment are fairly good. Vitals/I&O/Wt Last Vital Signs Temp 98.0 F 04/26/21 21:29 Pulse 73 04/26/21 21:29 Resp 18 04/26/21 21:29 BP 132/87 04/26/21 21:29 Pulse Ox 97 04/26/21 21:29 Weight last 48 hrs Weight 108.862 kg Data NPU : 04/26/21 04:44 04/26/21 04:44 A&P Additional A&P Information This is a 45-year-old man who had a rough childhood admitted because of worsening depression and fear that he would not be able to keep himself safe at home. 1. New current medications. 2. Continue every 15-minute checks for safety. 3. Encourage individual, group, and milieu therapies. Involuntary Hold Information 96 Hour Hold: 96 Hour Involuntary Admission: No 96 Hour Hold Ending Date: 01/04/21 96 Hour Hold Ending Time: 13:10 Attestations NPU Medical Necessity Statement*: The patient meets criteria for admission. Coding Level of Care Code Acute Community Relations Director for Martínez Ivy
[2021-04-26] MEDS: albuterol 8 gm MDI 2 PUFF INHALATION (18:07)
[2021-04-26] MEDS: BuSPIRONE 10 mg Tablet PO (21:36)
[2021-04-26] MEDS: gabapentin 300 mg Capsule PO ×2 (21:36)
--- NOTE | 2021-04-26 21:49 | P.DS_ITS ---
Diagnoses at Discharge Discharge Diagnosis (1) Suicidal ideation: Status: Acute (2) Alcohol use disorder, moderate, in early remission, dependence: Status: Acute (3) Nicotine dependence, unspecified, uncomplicated: Status: Acute (4) Major depressive disorder, recurrent severe without psychotic features: Status: Acute (5) Nicotine dependence: Status: Acute (6) Anxiety: Status: Acute (7) COPD (chronic obstructive pulmonary disease): Status: Acute Reason for Visit Reason for Visit: SI Brief History: Maximino Oreilly is a 45 year old male admitted for suicidal ideation. The ED note states: 45-year-old male states he had on-the-job incident roughly 5 years ago where he was electrocuted. He states that since then he has had extreme anger to his former coworkers. He states is gotten much worse this week he has now been having thoughts of suicide and homicide. Denies any worsening improving factors.: The patient tells me the story of having been electrocuted 5 years ago and numerous medical complaints that have arisen from this accident. He has pain in his back and leg, feels that his feet are on fire, and is often awakened by myoclonic jerks. He has had several episodes of pneumonia. Other somatic complaints include heart palpitations, chest pain, stomach pains. The patient said he has had depression all of his life, but it has been worse recently, as the myoclonic jerks and shaking in his extremities have increased in the last week. He says his mind gets stuck in a loop, thinking about the accident, people who are negligent, and other things that have happened. He has been thinking about suicide. He denies auditory visual hallucinations. The patient also describes social anxiety. He is unable to go to [facility] and lives there only 1 or 2 people there. He says he has difficulty going out into public and has to avoid large crowds. The patient says he stopped drinking after he was admitted for suicidal behavior back in December. He uses medical marijuana to relax. He smokes 1/2 pack of cigarettes per day. The patient was admitted back in December 2020 after he had taken out again with the intention of shooting himself. He sees Dr. Aragon for counseling. And Dr. Massey is his psychiatrist. Psychiatric history: As above. Substance use history: As above. Family history: The patient says that his father attempted suicide by shooting himself in the stomach while at [employer] when the patient was young. His mother completed suicide when he was 16 years old. His sister has attempted suicide. His father of a brain aneurysm. Psychosocial history: The patient says he experienced numerous behavioral disorders when he was young. At age 16 he dropped out of school. He was imprisoned for 5 years and got his GED when he was in [employer]. 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 They in 2017. They have 3 children ages 8, 11, and 13. Legal history: Alf for 5 years. No legal difficulties now. Medical history: As above. Hospital Course Hospital Course The patient is a 45 year old male admitted for depression, and suicidal and homicidal ideation worsening over the past week. He was admitted to the neuropsychiatric unit for definitive treatment of these issues. In the afternoon of his first full day with us, he saw staff entering a patient room wearing full PPE, and he became concerned that he might be exposed to Covid on the unit, and he asked to leave. Without disclosing any PHI of the other patient I asked Maximino if he could wait a bit, because that other patient was being moved. He said he would try, but he had been using extreme precautions to keep from getting Covid, and was very worried that he would be exposed here in the hospital. Later I received a call that he had decided he wanted to leave. His was comfortable taking him back home and observing him there. She was willing to come pick him up. The patient felt he could keep himself safe at home. Therefore the team made a decision to discharge him. Involuntary Hold Information 96 Hour Hold: 96 Hour Involuntary Admission: No 96 Hour Hold Ending Date: 01/04/21 96 Hour Hold Ending Time: 13:10 Mental Status Exam MSE Comments: The patient is a large, bearded man who was cooperative and made good eye contact. His ability to articulate experiences and draw conclusions shows a good degree of intelligence. He made a good case for leaving the hospital to keep himself safe from getting Covid. Mild to moderate psychomotor agitation. Speech was at a regular rate and rhythm, mildly pressured but interruptible. He was alert and oriented to person, place, day and date. Attention and concentration were intact. He was able to follow the conversation. He was able to spell the word WORLD correctly forwards and backwards. Memory showed some short-term problems. He remembers 3/3 words immediately and 1/3 at 3 minutes. He knows the names of the past 5 presidents. Mood is depressed and anxious. Affect is mood congruent. Thought process: Some perseveration about past traumas. Otherwise logical and goal-directed. Thought content: He denies current suicidal and homicidal ideation. He says he came to the hospital because I was afraid I was going to get to the point where I wanted to kill myself again. No auditory or visual hallucinations. No delusions noted. Insight and judgment are fairly good. He is making a reasonable decision to return home, given his concern about his health risks and Covid. Discharge Data Vitals: Last Vital Signs Temp 98.0 F 04/26/21 21:29 Pulse 73 04/26/21 21:29 Resp 18 04/26/21 21:29 BP 132/87 04/26/21 21:29 Pulse Ox 97 04/26/21 21:29 Discharge Plan Discharge Patient Disposition: Home Condition: Stable Prescriptions: Continued Chantix Starting Month Box 0.5 mg (11)- 1 mg (42) tablets,dose pack See Rx Instructions PO PER PKG DIR Qty: 53 RF: 0 fluoxetine 40 mg capsule 40 mg PO DAILY Qty: 30 RF: 2 buspirone 15 mg tablet 15 mg PO TID 30 Days Qty: 90 RF: 2 Wellbutrin SR 150 mg tablet sustained-release 12 hr 150 mg PO BID 30 Days Qty: 60 RF: 2 (DME) cane Device See Rx Instructions .Route Qty: 1 RF: 0 gabapentin 300 mg capsule 300 mg PO TID Qty: 90 RF: 0 budesonide-formoterol [Symbicort] 80-4.5 mcg/actuation Hfa Aerosol Inhaler 2 puff INHALATION BID RF: 0 albuterol sulfate [ProAir HFA] 90 mcg/actuation Hfa Aerosol Inhaler 2 puff INHALATION QID PRN (Reason: Shortness Of Breath Or Wheezing) RF: 0 fluticasone propionate [Flonase Allergy Relief] 50 mcg/actuation [place],Suspension 2 spray INTRANASAL BID PRN (Reason: Nasal Congestion) RF: 0 lisinopril 10 mg Tablet 10 mg PO DAILY RF: 0 meloxicam 15 mg Tablet 15 mg PO DAILY RF: 0 omeprazole 20 mg Capsule,Delayed Release(Dr/Ec) 20 mg PO DAILY RF: 0 cetirizine [Zyrtec] 10 mg Tablet 10 mg PO DAILY RF: 0 ibuprofen 800 mg Tablet 800 mg PO Q8H PRN (Reason: Moderate Pain (Scale Score 5-6)) RF: 0 Vitamin B-1 (mononitrate) 100 mg Tablet 100 mg PO DAILY 30 Days Qty: 30 RF: 1 Discharge Orders: Discharge Order (Routine); Ordered 04/26/21 Ordered By: Bulmaro Jones Referrals: Isai Carrington [Primary Care Provider] - Stephan Massey MD [Physician] - 05/14/21 9:15 am ([facility] for therapy on 04/30/21 @ 2:45pm) Discharge Diet: Usual diet Discharge Activity: Resume usual activity Patient Instructions: Opioid Safety Discharge Attestations NPU Time Spent in Discharge Care*: less than 30 min Specific Discharge Activities: Specific discharge activities: discussing with case management director/social workers/dc planners and documenting/other paperwork Status at Discharge: Cognitive status at discharge: cognitively intact , Behavioral status at discharge: can be uncooperative , Functional status at discharge: independent ambulation Overall status at discharge: patient is not back to baseline Coding Level of Care Code Acute [facility] DC note Diagnoses Suicidal ideation R45.851 Alcohol use disorder, moderate, in early remission, dependence F10.21 Nicotine dependence, unspecified, uncomplicated F17.200 Major depressive disorder, recurrent severe without psychotic features F33.2 Nicotine dependence F17.200 Anxiety F41.9 COPD (chronic obstructive pulmonary disease) J44.9
--- NOTE | 2021-05-01 15:15 | PC.RESP ---
Smoking Cessation information sent to patient.
== END 2021-04-26 21:50 | disposition home or self-care (01) ==
LOC: ER 05:30 → NP 14:13
PROVIDERS: Admitting Provider Psychiatry & Neurology Child & Adolescent Psychiatry; Emergency Provider Emergency Medicine; PCP Family Medicine; Visit Provider Psychiatry & Neurology Child & Adolescent Psychiatry
DX: R45.851 Suicidal ideations (principal); F10.21 Alcohol dependence, in remission; F33.2 Major depressive disorder, recurrent severe without psychotic features; F41.9 Anxiety disorder, unspecified; J44.9 Chronic obstructive pulmonary disease, unspecified; F17.210 Nicotine dependence, cigarettes, uncomplicated
CPT/HCPCS: 80053; 80306; 80307; 85025; 94640; 94664; 99285; G0378; J3535

== ENCOUNTER → 2021-05-02 12:53 | Outpatient (BNVA) | payer BC, SELFPAY | PROVIDERS: PCP Family Medicine; Visit Provider Nurse Practitioner Family | DX: Z20.822 Contact with and (suspected) exposure to COVID-19 (principal); J06.9 Acute upper respiratory infection, unspecified | CPT/HCPCS: 87635 ==

== ENCOUNTER 2021-05-06 23:56 | Emergency (ER) | payer BC, SELFPAY ==
--- NOTE | 2021-05-07 00:04 | XRR_ITS ---
PROCEDURE INFORMATION: Exam: XR Chest Exam date and time: 05/07/2021 12:04 AM Age: 45 years old Clinical indication: Pain; Chest pressure; Additional info: Cp TECHNIQUE: Imaging protocol: XR of the chest. Views: 1 view. COMPARISON: CT Cervical Spine wo* [id number] 11/15/2020 10:06 PM FINDINGS: Lungs: There are multiple calcified pulmonary nodules consistent with prior granulomatous disease. Pleural spaces: Unremarkable. No pleural effusion. No pneumothorax. Heart/Mediastinum: Unremarkable. No cardiomegaly. Bones/joints: Unremarkable. XR/XR chest 1V portable [id number] IMPRESSION: No acute disease.
--- NOTE | 2021-05-07 00:05 | ECG_ITS ---
[facility] ED Test Date: 2021-05-07 Pat Name: Maximino Oreilly Department: Room: Gender: Male Associate Director Finance: : 1975 Requested By: Rusty Unger Order Number: [id number] Malachi MD: Jennifer Sparks M.D. Measurements Intervals [place] Rate: 59 P: -14 OR: 150 QRS: 52 QRSD: 96 T: 48 QT: 429 QTc: 427 Interpretive Statements SINUS BRADYCARDIA No previous ECG available for comparison Electronically Signed On 05-09-2021 7:45:35 CDT by Jennifer Sparks M.D. [id number]
[2021-05-07 00:14] VITALS: BP 147/104; PULSE 63; RESP 20; TEMP 36.6; O2SAT 96; BMI 31.6
[2021-05-07 00:48] LABS: Basophils % 0.6 %; Eosinophils # 0.1 10^3/uL (0.0-0.8); Eosinophils % 2.2 %; Hematocrit 44.6 % (42.0-52.0); Hemoglobin 14.9 g/dL (11.7-16.6); Lymphocytes # 2.7 10^3/uL (0.8-4.8); Lymphocytes % 42.6 %; Mean Corpuscular HGB Conc 33.4 g/dL (30.0-36.0); Mean Corpuscular Hemoglobin 29.7 pg (28.0-34.0); Mean Corpuscular Volume 88.8 fL (80-94); Mean Platelet Volume 10.2 fL (7.4-10.4); Monocytes # 0.3 10^3/uL (0.2-0.9); Neutrophils # 3.16 10^3/uL (1.8-7.7); Neutrophils % 49.4 %; Nucleated Red Blood Cells % 0 %; Platelet Count 226 10^3/cmm (130-400); Red Blood Count 5.02 10^6/uL (4.1-5.3); Red Cell Distribution Width 12.3 % (12.1-15.1); White Blood Count 6.4 10^3/uL (4.0-10.0)
[2021-05-07 01:06] LABS: Troponin(5th) Baseline 6 ng/L (0-15)
[2021-05-07 01:10] LABS: Alanine Aminotransferase 10 U/L (0-41); Albumin Level 4.2 g/dL (3.5-5.2); Alkaline Phosphatase 86 IU/L (40-130); Anion Gap 15.9 (5-19); Aspartate Amino Transferase 14 U/L (0-40); Blood Urea Nitrogen 12 mg/dL (6-20); Calcium 8.2 mg/dL (8.5-10.5); Carbon Dioxide 25 mmol/L (22-29); Chloride 103 mmol/L (98-107); Creatinine Clr Calc Pharmacy 150.8864; Globulin 1.8 g/dL (1.3-4.6); Glomerular Filtration Rate 104.5 mL/min (90-130); Glucose 88 mg/dL (65-115); Osmolality Calculated 289 mOsm/kg (285-295); Potassium 3.9 mmol/L (3.5-5.1); Sodium 140 mmol/L (136-145); Total Bilirubin 0.4 mg/dL (0.15-1.2)
--- NOTE | 2021-05-07 02:05 | ECG_ITS ---
[facility] ED Test Date: 2021-05-07 Pat Name: Maximino Oreilly Department: Room: Gender: Male Squeegeer And Former: : 1975 Requested By: Rusty Unger Order Number: [id number] Malachi MD: Jennifer Sparks M.D. Measurements Intervals [place] Rate: 61 P: -48 WY: 156 QRS: 59 QRSD: 95 T: 57 QT: 430 QTc: 435 Interpretive Statements ECTOPIC ATRIAL RHYTHM ABNORMAL RHYTHM ECG Compared to ECG 05/07/2021 01:35:28 Ectopic atrial rhythm now present Sinus bradycardia no longer present Electronically Signed On 05-09-2021 10:05:05 CDT by Jennifer Sparks M.D. [id number]
[2021-05-07 02:22] VITALS: BP 149/84; PULSE 62; RESP 16; O2SAT 96
--- NOTE | 2021-05-07 02:33 | ED_ITS ---
HPI - Chest Pain General: Chief Complaint: Chest Pain Stated Complaint: CP Time Seen by Provider: 05/07/21 02:14 Source: patient and EMS Mode of arrival: EMS Limitations: no limitations History of Present Illness: HPI narrative: 45-year-old male who states he was diagnosed with Covid last week. He states that carmelita Ashley had an sudden onset of sharp chest pain in the center of his chest he states it lasted 1 to 2 minutes and has been a dull ache since. He states he is actually pain-free currently. He denies any shortness of breath or fever or cough. He denies any worsening improving factors. He has no history of coronary artery disease. He does have a history of high blood pressure and is a smoker. Associated symptoms: Deny abdominal pain, dyspnea, fever(s), nausea or vomiting Review of Systems Const: Denies: fever(s), chills, body aches or change in appetite Eyes: Denies: blurry vision or eye discomfort ENMT: Denies: throat pain or dental pain Card: Reports: chest pain Resp: Denies: dyspnea GI: Denies: abdominal pain, nausea, vomiting or diarrhea : Denies: dysuria Musc: Denies: neck pain or back pain Skin/Breast: Denies: rash Neuro: Denies: headache(s) Psych: Denies: depression Jake/Lymph: Denies: easy bruising All/Imm: Denies: urticaria PFSH ED PFSH: Medical History COPD (chronic obstructive pulmonary disease) Family History Sister Diabetes Grandmother Diabetes Hypertension Stroke Father Hypertension Stroke Social History Smoking and tobacco status: current every day smoker cigarettes Packs smoked per day: 0.5 Years cigarettes smoked: 30 Quit status (tobacco): has tried quititng Number of times tried to quit tobacco: 7 Second hand smoke exposure: Yes Physical Exam Const: COMMON NORMALS: no acute distress, patient oriented x3 and healthy appearing HENMT: COMMON NORMALS: normocephalic and atraumatic HEAD & SCALP: normocephalic and atraumatic Eye: COMMON NORMALS: Equal, round and reactive pupils present and EOMs intact bilaterally PUPIL: Yes Equal, round and reactive pupils present Neck/C-Spine: COMMON NORMALS: full ROM and supple Chest: COMMONS NORMALS: normal inspection of the chest and normal palpation of entire chest wall Resp: COMMON NORMALS: normal respiratory effort, No retractions, No use of accessory muscles and clear to auscultation bilaterally AUSCULTATION: clear to auscultation bilaterally Cardio: COMMON NORMALS: regular rate, regular rhythm and No murmurs present (Cardio) RATE: regular rate RHYTHM: regular rhythm GI: COMMON NORMALS: Normal to inspection, nondistended, normoactive bowel sounds present, Soft to palpation, non-tender and no masses PALPATION: Yes Soft to palpation Extremity: COMMON NORMALS: normal to inspection and full ROM Neuro: COMMON NORMALS: patient oriented x3, moves all extremities and no focal motor deficits Psych: COMMON NORMALS: mental status grossly normal, Normal thought process present and cooperative THOUGHT PROCESS: Normal thought process present Skin: COMMON NORMALS: no rashes or lesions noted and no wounds GENERAL SKIN EXAM: no rashes or lesions noted Course Vital Signs: Vital signs: Vital Signs Temperature 97.9 F 05/07/21 00:14 Pulse Rate 66 05/07/21 04:00 Respiratory Rate 16 05/07/21 04:00 Blood Pressure 118/70 05/07/21 04:30 Pulse Oximetry 93 05/07/21 04:30 MDM - Chest Pain MDM Narrative: Medical decision making narrative: Patient presents here with chest pain likely from his Covid. Patient's blood work and troponins here are negative. He has no signs of acute coronary syndrome. Patient has no signs of pneumonia here. He stable for discharge return if worsening. Lab Data: Labs: Lab Results 05/07/21 05/07/21 05/07/21 Range/Units 00:40 00:40 00:40 WBC 6.4 (4.0-10.0) 10^3/ uL RBC 5.02 (4.1-5.3) 10^6/u L Hgb 14.9 (11.7-16.6) g/dL Hct 44.6 (42.0-52.0) % MCV 88.8 (80-94) fL MCH 29.7 (28.0-34.0) pg MCHC 33.4 (30.0-36.0) g/dL RDW 12.3 (12.1-15.1) % Plt Count 226 (130-400) 10^3/c mm MPV 10.2 (7.4-10.4) fL Neut % (Auto) 49.4 % Lymph % (Auto) 42.6 % Tw[place]gs % (Auto) 5.0 % Eos % (Auto) 2.2 % Baso % (Auto) 0.6 % Neut # (Auto) 3.16 (1.8-7.7) 10^3/u L Lymph # (Auto) 2.7 (0.8-4.8) 10^3/u L Tw[place]gs # (Auto) 0.3 (0.2-0.9) 10^3/u L Eos # (Auto) 0.1 (0.0-0.8) 10^3/u L Baso # (Auto) 0.0 (0.0-0.1) 10^3/u L Nucleated RBC % (a uto) 0 % Nucleated RBCs # 0.0 /100WBC D-Dimer (0-0.59) ug/mIFE U Sodium 140 (136-145) mmol/L Potassium 3.9 (3.5-5.1) mmol/L Chloride 103 (98-107) mmol/L Carbon Dioxide 25 (22-29) mmol/L Anion Gap 15.9 (5-19) BUN 12 (6-20) mg/dL Creatinine 0.8 (0.7-1.2) mg/dL GFR Calculation 104.5 (90-130) mL/min Glucose 88 (65-115) mg/dL Calculated Osmolal ity 289 (285-295) mOsm/k g Calcium 8.2 L (8.5-10.5) mg/dL Total Bilirubin 0.4 (0.15-1.2) mg/dL AST 14 (0-40) U/L ALT 10 (0-41) U/L Alkaline Phosphata se 86 (40-130) IU/L Troponin T Baselin e 6 (0-15) ng/L Troponin T 120 Min ranjit (0-15) ng/L Delta Troponin T (0-10) ABS# Total Protein 6.0 L (6.6-8.7) g/dL Albumin 4.2 (3.5-5.2) g/dL Globulin 1.8 (1.3-4.6) g/dL 05/07/21 05/07/21 Range/Units 00:40 02:32 WBC (4.0-10.0) 10^3/ uL RBC (4.1-5.3) 10^6/u L Hgb (11.7-16.6) g/dL Hct (42.0-52.0) % MCV (80-94) fL MCH (28.0-34.0) pg MCHC (30.0-36.0) g/dL RDW (12.1-15.1) % Plt Count (130-400) 10^3/c mm MPV (7.4-10.4) fL Neut % (Auto) % Lymph % (Auto) % Twiggs % (Auto) % Eos % (Auto) % Baso % (Auto) % Neut # (Auto) (1.8-7.7) 10^3/u L Lymph # (Auto) (0.8-4.8) 10^3/u L Twiggs # (Auto) (0.2-0.9) 10^3/u L Eos # (Auto) (0.0-0.8) 10^3/u L Baso # (Auto) (0.0-0.1) 10^3/u L Nucleated RBC % (a uto) % Nucleated RBCs # /100WBC D-Dimer <= 0.27 (0-0.59) ug/mIFE U Sodium (136-145) mmol/L Potassium (3.5-5.1) mmol/L Chloride (98-107) mmol/L Carbon Dioxide (22-29) mmol/L Anion Gap (5-19) BUN (6-20) mg/dL Creatinine (0.7-1.2) mg/dL GFR Calculation (90-130) mL/min Glucose (65-115) mg/dL Calculated Osmolal ity (285-295) mOsm/k g Calcium (8.5-10.5) mg/dL Total Bilirubin (0.15-1.2) mg/dL AST (0-40) U/L ALT (0-41) U/L Alkaline Phosphata se (40-130) IU/L Troponin T Baselin e (0-15) ng/L Troponin T 120 Min ranjit 6.00 (0-15) ng/L Delta Troponin T 0 (0-10) ABS# Total Protein (6.6-8.7) g/dL Albumin (3.5-5.2) g/dL Globulin (1.3-4.6) g/dL EKG Data^: EKG 1: Attestation: I personally reviewed and interpreted this EKG as follows: EKG interpretation date: 05/07/21 EKG interpretation time: 02:40 Interpretation: nsr hr [address] or t wave abnormalities qrs 95 qtc 433 Discharge Plan Discharge Patient Disposition: Home Clinical Impression: Chest pain Condition: Stable Prescriptions: No Action Chantix Starting Month Box 0.5 mg (11)- 1 mg (42) tablets,dose pack See Rx Instructions PO PER PKG DIR Qty: 53 RF: 0 fluoxetine 40 mg capsule 40 mg PO DAILY Qty: 30 RF: 2 buspirone 15 mg tablet 15 mg PO TID 30 Days Qty: 90 RF: 2 Wellbutrin SR 150 mg tablet sustained-release 12 hr 150 mg PO BID 30 Days Qty: 60 RF: 2 (DME) cane Device See Rx Instructions .Route Qty: 1 RF: 0 gabapentin 300 mg capsule 300 mg PO TID Qty: 90 RF: 0 budesonide-formoterol [Symbicort] 80-4.5 mcg/actuation Hfa Aerosol Inhaler 2 puff INHALATION BID RF: 0 albuterol sulfate [ProAir HFA] 90 mcg/actuation Hfa Aerosol Inhaler 2 puff INHALATION QID PRN (Reason: Shortness Of Breath Or Wheezing) RF: 0 fluticasone propionate [Flonase Allergy Relief] 50 mcg/actuation [place],Suspension 2 spray INTRANASAL BID PRN (Reason: Nasal Congestion) RF: 0 lisinopril 10 mg Tablet 10 mg PO DAILY RF: 0 meloxicam 15 mg Tablet 15 mg PO DAILY RF: 0 omeprazole 20 mg Capsule,Delayed Release(Dr/Ec) 20 mg PO DAILY RF: 0 cetirizine [Zyrtec] 10 mg Tablet 10 mg PO DAILY RF: 0 ibuprofen 800 mg Tablet 800 mg PO Q8H PRN (Reason: Moderate Pain (Scale Score 5-6)) RF: 0 Vitamin B-1 (mononitrate) 100 mg Tablet 100 mg PO DAILY 30 Days Qty: 30 RF: 1 Discharge Orders: Discharge ED (Routine); Ordered 05/07/21 Ordered By: Rusty Unger Referrals: Isai Carrington [Primary Care Provider] - Discharge Diet: Advance as tolerated Discharge Activity: Resume usual activity Patient Instructions: Chest Pain (ED) Coding Level of Care Code ED Job Compositor for Chg Fwd Exam Comprehensive
[2021-05-07 02:48] LABS: D Dimer <= 0.27 ug/mIFEU (0-0.59)
[2021-05-07 03:01] LABS: Troponin 5 2HR Delta 0 ABS# (0-10)
[2021-05-07 03:53] VITALS: BP 115/67; PULSE 61; RESP 16; O2SAT 94
[2021-05-07 04:00] VITALS: BP 125/78; PULSE 66; RESP 16; O2SAT 93
[2021-05-07 04:30] VITALS: BP 118/70; O2SAT 93
[2021-05-07 05:31] VITALS: BP 133/82; PULSE 66; RESP 16; TEMP 36.6; O2SAT 93
== END 2021-05-07 05:33 | disposition home or self-care (01) ==
PROVIDERS: Emergency Provider Emergency Medicine; PCP Family Medicine
DX: R07.9 Chest pain, unspecified (principal); U07.1 COVID-19; J44.9 Chronic obstructive pulmonary disease, unspecified; F17.210 Nicotine dependence, cigarettes, uncomplicated
CPT/HCPCS: 71045; 80053; 84484; 85025; 85378; 93005; 99283

== ENCOUNTER → 2021-05-20 14:00 | Outpatient (BNVA) | payer BC, SELFPAY | PROVIDERS: PCP Family Medicine; Visit Provider Nurse Practitioner | DX: R25.1 Tremor, unspecified (principal); W86.8XXS Exposure to other electric current, sequela; F17.200 Nicotine dependence, unspecified, uncomplicated | CPT/HCPCS: 99204 ==

== ENCOUNTER 2021-05-20 15:32 | Outpatient (CLI) | payer BC, SELFPAY ==
[2021-05-20 16:50] LABS: Ferritin 235 ng/mL (30-400); Iron 56 ug/dL (59-158); Percent Saturation 27.8 % (20-50); Thyroid Stimulating Hormone 1.42 uIU/mL (0.27-4.20); Total Iron Binding Capacity 201 mcg/dl; Unsaturated Iron Binding 145 ug/dL (112-347); Vitamin B12 185 pg/mL (232-1245)
== END 2021-05-20 15:33 | disposition home or self-care (01) ==
LOC: LAB 15:38
PROVIDERS: PCP Family Medicine; Visit Provider Nurse Practitioner
DX: G62.9 Polyneuropathy, unspecified (principal)
CPT/HCPCS: 36415; 82607; 82728; 83540; 83550; 84443

== ENCOUNTER → 2021-06-04 08:39 | Outpatient (BNVA) | payer BC, SELFPAY | PROVIDERS: PCP Family Medicine; Visit Provider Anesthesiology Pain Medicine | DX: M51.16 Intervertebral disc disorders with radiculopathy, lumbar region (principal); G62.9 Polyneuropathy, unspecified | CPT/HCPCS: 99213; 99214 ==

== ENCOUNTER 2021-06-04 14:51 | Outpatient (CLI) | payer BC, SELFPAY | END 2021-06-04 14:52 | LOC: NSACUTE 06-19 12:14 | PROVIDERS: PCP Family Medicine; Visit Provider Specialist | DX: R25.1 Tremor, unspecified (principal); R56.9 Unspecified convulsions; R51.9 Headache, unspecified; F17.200 Nicotine dependence, unspecified, uncomplicated | CPT/HCPCS: 95816 ==

== ENCOUNTER 2021-06-14 07:49 | Outpatient (CLI) | payer BC, SELFPAY ==
--- NOTE | 2021-06-14 07:58 | MR_ITS ---
WS: [id number] MRI HEAD WITH CONTRAST TECHNIQUE: Sagittal T1, T2 axial, T2 axial FLAIR, axial susceptibility weighted imaging, axial diffus ion weighted images, and coronal T2 images were obtained. Pre and post-T1 axial and post T1 coronal i mages. ADC and FSPGR images. CLINICAL INFORMATION: R25.1 - Tremor, unspecified COMPARISON: None. FINDINGS: No evidence of restricted diffusion to suggest acute ischemia. Ventricular system and basal cisterns are patent. A few tiny foci of T2 hyperintensity in the right periventricular and bilateral subcortic al white matter. No significant parenchymal volume loss. Normal posterior fossa. Normal vascular flow voids at the skull base. No extra-axial fluid collections. No evidence of mass or mass effect. Paranasal sinuses and mastoid air cells are well aerated. Small retention cysts in the posterior naso pharynx. 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 Mild crowding at the foramen magnum. No hydrocephalus. No hemosiderin on susceptibly weighted images. Normal optic chiasm and pituitary infundibulum. Temporal lobes and hippocampal formations are normal in appearance. Normal cavernous sinuses and Meckel's cave. No abnormal gadolinium enhancement. Normal dural venous sinuses. MR/MR head wo/w con [id number] IMPRESSION: 1. No evidence of restricted diffusion to suggest acute ischemia. 2. A few tiny foci in the periventricular and subcortical white matter nonspec ific in a patient this age but can be seen with migraine headaches. 3. 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 Normal four th ventricle. No hydrocephalus. 4. No hemosiderin on susceptibly weighted images. 5. Normal optic chiasm and pituitary infundibulum. 6. No abnormal intracranial enhancement.
[2021-06-14] MEDS: gadobenate dimeglumine 20 mL vial IV (08:41)
== END 2021-06-14 07:50 | disposition home or self-care (01) ==
PROVIDERS: PCP Family Medicine; Visit Provider Nurse Practitioner
DX: R25.1 Tremor, unspecified (principal); G93.5 Compression of brain
CPT/HCPCS: 70553; A9577

== ENCOUNTER → 2021-06-19 13:29 | Outpatient (BNVA) | payer BC, SELFPAY | PROVIDERS: PCP Family Medicine; Referring Provider Nurse Practitioner; Visit Provider Specialist | DX: G62.89 Other specified polyneuropathies (principal); F33.2 Major depressive disorder, recurrent severe without psychotic features; F17.210 Nicotine dependence, cigarettes, uncomplicated | CPT/HCPCS: 95909; 99203 ==

== ENCOUNTER → 2021-06-27 14:33 | Outpatient (BNVA) | payer BC, SELFPAY | PROVIDERS: PCP Family Medicine; Visit Provider Anesthesiology Pain Medicine | DX: M51.16 Intervertebral disc disorders with radiculopathy, lumbar region (principal); G62.9 Polyneuropathy, unspecified; M79.605 Pain in left leg; M79.604 Pain in right leg | CPT/HCPCS: 99213 ==

== ENCOUNTER → 2021-07-11 08:23 | Outpatient (BNVA) | payer OTHER, SELFPAY | PROVIDERS: PCP Family Medicine; Visit Provider Social Worker | DX: F33.2 Major depressive disorder, recurrent severe without psychotic features (principal) | CPT/HCPCS: 90834 ==

== ENCOUNTER → 2021-07-25 07:47 | Outpatient (BNVA) | payer OTHER, SELFPAY | PROVIDERS: PCP Family Medicine; Visit Provider Social Worker | DX: F33.2 Major depressive disorder, recurrent severe without psychotic features (principal) | CPT/HCPCS: 90834 ==

== ENCOUNTER → 2021-08-07 07:46 | Outpatient (BNVA) | payer OTHER, SELFPAY | PROVIDERS: PCP Family Medicine; Visit Provider Social Worker | DX: F33.2 Major depressive disorder, recurrent severe without psychotic features (principal) | CPT/HCPCS: 90834 ==

== ENCOUNTER → 2021-08-16 09:35 | Outpatient (BNVA) | payer OTHER, SELFPAY | PROVIDERS: PCP Family Medicine; Visit Provider Nurse Practitioner Psychiatric/Mental Health | DX: F41.1 Generalized anxiety disorder (principal); R45.851 Suicidal ideations; F33.2 Major depressive disorder, recurrent severe without psychotic features | CPT/HCPCS: 99215 ==

== ENCOUNTER → 2021-08-28 07:42 | Outpatient (BNVA) | payer OTHER, SELFPAY | PROVIDERS: PCP Family Medicine; Visit Provider Social Worker | DX: F33.2 Major depressive disorder, recurrent severe without psychotic features (principal) | CPT/HCPCS: 90834 ==

== ENCOUNTER → 2021-08-29 14:07 | Outpatient (BNVA) | payer OTHER, SELFPAY | PROVIDERS: PCP Family Medicine; Visit Provider Nurse Practitioner Psychiatric/Mental Health | DX: F33.2 Major depressive disorder, recurrent severe without psychotic features (principal); F10.21 Alcohol dependence, in remission; F17.210 Nicotine dependence, cigarettes, uncomplicated; Z79.899 Other long term (current) drug therapy; Z03.89 Encounter for observation for other suspected diseases and conditions ruled out; F12.20 Cannabis dependence, uncomplicated | CPT/HCPCS: 99214 ==

== ENCOUNTER → 2021-08-30 09:13 | Outpatient (BNVA) | payer OTHER, SELFPAY | PROVIDERS: PCP Family Medicine; Visit Provider Nurse Practitioner Psychiatric/Mental Health | DX: Z79.899 Other long term (current) drug therapy (principal) | CPT/HCPCS: 80053; 80061; 83036; 83540; 84443 ==

== ENCOUNTER → 2021-09-18 08:05 | Outpatient (BNVA) | payer OTHER, SELFPAY | PROVIDERS: PCP Family Medicine; Visit Provider Social Worker | DX: F33.2 Major depressive disorder, recurrent severe without psychotic features (principal) | CPT/HCPCS: 90834 ==

== ENCOUNTER → 2021-10-04 07:34 | Outpatient (BNVA) | payer OTHER, SELFPAY | PROVIDERS: PCP Family Medicine; Visit Provider Nurse Practitioner Psychiatric/Mental Health | DX: F33.2 Major depressive disorder, recurrent severe without psychotic features (principal); F17.210 Nicotine dependence, cigarettes, uncomplicated; F10.21 Alcohol dependence, in remission; F12.20 Cannabis dependence, uncomplicated; Z03.89 Encounter for observation for other suspected diseases and conditions ruled out; Z79.899 Other long term (current) drug therapy | CPT/HCPCS: 99214 ==

== ENCOUNTER → 2021-10-08 08:19 | Outpatient (BNVA) | payer OTHER, SELFPAY | PROVIDERS: PCP Family Medicine; Visit Provider Social Worker | DX: F33.2 Major depressive disorder, recurrent severe without psychotic features (principal) | CPT/HCPCS: 90832 ==

== ENCOUNTER → 2021-10-30 08:35 | Outpatient (BNVA) | payer OTHER, SELFPAY | PROVIDERS: PCP Family Medicine; Visit Provider Social Worker | DX: F33.2 Major depressive disorder, recurrent severe without psychotic features (principal) | CPT/HCPCS: 90834 ==

== ENCOUNTER → 2021-11-07 08:55 | Outpatient (BNVA) | payer OTHER, SELFPAY | PROVIDERS: PCP Family Medicine; Visit Provider Social Worker | DX: F33.2 Major depressive disorder, recurrent severe without psychotic features (principal) | CPT/HCPCS: 90834 ==

== ENCOUNTER → 2021-11-08 09:19 | Outpatient (BNVA) | payer OTHER, SELFPAY | PROVIDERS: PCP Family Medicine; Visit Provider Nurse Practitioner Psychiatric/Mental Health | DX: F33.2 Major depressive disorder, recurrent severe without psychotic features (principal); F17.210 Nicotine dependence, cigarettes, uncomplicated; F10.21 Alcohol dependence, in remission; F12.20 Cannabis dependence, uncomplicated; Z79.899 Other long term (current) drug therapy; Z03.89 Encounter for observation for other suspected diseases and conditions ruled out | CPT/HCPCS: 99214 ==

== ENCOUNTER → 2022-02-07 12:58 | Outpatient (BNVA) | payer OTHER, SELFPAY | PROVIDERS: PCP Family Medicine; Visit Provider Nurse Practitioner Psychiatric/Mental Health | DX: F33.2 Major depressive disorder, recurrent severe without psychotic features (principal); F10.21 Alcohol dependence, in remission; F17.210 Nicotine dependence, cigarettes, uncomplicated; F12.20 Cannabis dependence, uncomplicated; Z79.899 Other long term (current) drug therapy; Z03.89 Encounter for observation for other suspected diseases and conditions ruled out | CPT/HCPCS: 99214 ==

== ENCOUNTER → 2022-02-18 07:43 | Outpatient (BNVA) | payer OTHER, SELFPAY | PROVIDERS: PCP Family Medicine; Visit Provider Social Worker | DX: F33.1 Major depressive disorder, recurrent, moderate (principal); F41.1 Generalized anxiety disorder; F10.99 Alcohol use, unspecified with unspecified alcohol-induced disorder | CPT/HCPCS: 90791 ==

== ENCOUNTER → 2022-03-12 06:17 | Outpatient (BNVA) | payer OTHER, SELFPAY | PROVIDERS: PCP Family Medicine; Visit Provider Social Worker | DX: F33.2 Major depressive disorder, recurrent severe without psychotic features (principal) | CPT/HCPCS: 90834 ==

== ENCOUNTER → 2022-03-27 09:29 | Outpatient (BNVA) | payer OTHER, SELFPAY | PROVIDERS: PCP Family Medicine; Visit Provider Nurse Practitioner Psychiatric/Mental Health | DX: F33.2 Major depressive disorder, recurrent severe without psychotic features (principal); F10.21 Alcohol dependence, in remission; F17.210 Nicotine dependence, cigarettes, uncomplicated; F12.20 Cannabis dependence, uncomplicated | CPT/HCPCS: 99214 ==

== ENCOUNTER → 2022-04-17 09:01 | Outpatient (BNVA) | payer MEDICAID, SELFPAY | PROVIDERS: PCP Family Medicine; Visit Provider Internal Medicine Critical Care Medicine | DX: J44.9 Chronic obstructive pulmonary disease, unspecified (principal); G47.33 Obstructive sleep apnea (adult) (pediatric); F17.210 Nicotine dependence, cigarettes, uncomplicated | CPT/HCPCS: 99204 ==

== ENCOUNTER 2022-05-06 08:49 | Outpatient (CLI) | payer MEDICAID, SELFPAY ==
--- NOTE | 2022-05-06 09:55 | PFTS_ITS ---
Date of Study:05/06/22 Date of Dictation:05/12/22 MECHANICS: Postbronchodilator forced vital capacity (FVC) is normal. Postbronchodilator forced expiratory volume in one second (FEV1) is reduced. FEV1/FVC is reduced. There is significant response to bronchodilators. FLOW VOLUME LOOP: Sloping of expiratory curve suggestive of airflow obstruction LUNG VOLUMES: Total lung capacity (TLC) is normal. Residual volume (RV) is increased. DIFFUSING CAPACITY FOR CARBON MONOXIDE: Normal . INTERPRETATION: The Postbronchodilator spirometry show moderate airflow obstruction. There is significant response to bronchodilators. Lung volumes are suggestive of mild air trapping. Gas transfer is normal. Flow volume loop suggestive of airflow obstruction. Overall constellation of findings consistent with moderate obstructive lung disease. Clinical correlation recommended. MTDD
== END 2022-05-06 08:50 | disposition home or self-care (01) ==
LOC: RT 08:50
PROVIDERS: PCP Family Medicine; Visit Provider Internal Medicine Critical Care Medicine
DX: J44.9 Chronic obstructive pulmonary disease, unspecified (principal)
CPT/HCPCS: 94060; 94618; 94726; 94729; J7614

== ENCOUNTER → 2022-05-29 10:25 | Outpatient (BNVA) | payer MEDICAID, SELFPAY | PROVIDERS: PCP Family Medicine; Visit Provider Internal Medicine Critical Care Medicine | DX: R06.02 Shortness of breath (principal); J44.9 Chronic obstructive pulmonary disease, unspecified; F17.210 Nicotine dependence, cigarettes, uncomplicated; G47.33 Obstructive sleep apnea (adult) (pediatric) | CPT/HCPCS: 82785; 85025; 86003 ==

== ENCOUNTER → 2023-02-16 13:40 | Outpatient (BNVA) | payer BC, OTHER, SELFPAY | PROVIDERS: PCP Family Medicine; Visit Provider Nurse Practitioner Psychiatric/Mental Health | DX: Z79.899 Other long term (current) drug therapy (principal) | CPT/HCPCS: 80053; 80061; 82607; 83036 ==

== ENCOUNTER → 2024-01-21 12:02 | Outpatient (BNVA) | payer BC, SELFPAY | PROVIDERS: PCP Family Medicine; Visit Provider Internal Medicine Pulmonary Disease | DX: J44.9 Chronic obstructive pulmonary disease, unspecified (principal) | CPT/HCPCS: 36415; 85025 ==